=== PATIENT | male | born 2005 | race Caucasian/White ===

== ENCOUNTER 2023-04-28 14:34 | Emergency (ER) | payer BC, OTHER ==
[~2023-04-28] VITALS: Ht 190.5 cm; Wt 145.1 kg
[2023-04-28] MEDS ORDERED: TDAP DIPH,PERTUSS,TET VAC/PF 0.5 ML DISP.SYRIN IM ONE ×2 (16:00→16:01)
--- NOTE | 2023-04-28 16:50 | NUR ---
Hand cleaned and dry dressing applied - waiting for MD to review.
--- NOTE | 2023-04-28 17:32 | NUR ---
DRESSIN) Steri- strips applied and secured with bandage. 2) Clinically stable on discharge.
[2023-04-28 17:36] VITALS: BP 132/75; TEMP 98; O2SAT 98
== END 2023-04-28 17:29 | disposition home or self-care (01) ==
LOC: ER 14:34
DX: S61.011A Laceration without foreign body of right thumb without damage to nail, initial encounter (principal); W25.XXXA Contact with sharp glass, initial encounter; Y93.89 Activity, other specified; Y92.89 Other specified places as the place of occurrence of the external cause; Y99.8 Other external cause status
CPT/HCPCS: 73130; 90715; A4663